=== PATIENT | male | born 1980 | race Caucasian/White ===

== ENCOUNTER → 2023-10-05 10:17 | Outpatient (BNVA) | payer MEDICAID, SELFPAY | PROVIDERS: Visit Provider Nurse Practitioner | DX: R05.9 Cough, unspecified (principal); J10.1 Influenza due to other identified influenza virus with other respiratory manifestations | CPT/HCPCS: 87400; 87426 ==

== ENCOUNTER 2023-11-20 18:04 | Emergency (ER) | payer MEDICAID, SELFPAY ==
[2023-11-20 18:09] VITALS: BP 152/85; PULSE 74; RESP 16; TEMP 36.4; O2SAT 98
[2023-11-20 18:13] VITALS: PULSE 72; O2SAT 96
[2023-11-20 18:27] LABS: Basophils # 0.1 10^3/uL (0.0-0.1); Eosinophils # 0.7 10^3/uL (0.0-0.8); Eosinophils % 6.4 %; Hematocrit 51.1 % (37-53); Lymphocytes # 3.3 10^3/uL (0.8-4.8); Lymphocytes % 30.8 %; Mean Corpuscular HGB Conc 34.6 g/dL (30-55); Mean Corpuscular Hemoglobin 30.1 pg (27-33); Mean Corpuscular Volume 86.8 fl (82-101); Mean Platelet Volume 9.4 fL (7.4-10.4); Monocytes # 0.6 10^3/uL (0.2-0.9); Monocytes % 5.7 %; Neutrophils # 5.94 10^3/uL (1.8-7.7); Neutrophils % 55.6 %; Nucleated Red Blood Cells % 0 %; Platelet Count 287 10^3/cmm (157-399); Red Blood Count 5.89 10^6/uL (3.85-5.65); Red Cell Distribution Width 13.1 % (12.1-15.1)
--- NOTE | 2023-11-20 18:41 | ED_ITS ---
HPI - Male Genitourinary 2 General: Chief complaint: Urogenital-Male Stated complaint: pain in groin moving up Time Seen by Provider: 11/20/23 18:41 History of Present Illness: 43-year-old male patient comes in today with inguinal and testicular pain for the last 2 days that have been severe. Patient reports about 2 months ago he had a similar episode and was seen in the emergency room in [facility]. At that time patient was cleared of any acute abnormality was recommended to follow-up with urology. Patient did not get any follow-up. Patient comes in tonight with similar pain that is worsened throughout the day while he has been lifting boxes at work. Patient appears nontoxic. Patient appears in no pain at rest. Review of Systems 2 General: Reports: 10 or more systems reviewed and unremarkable except in HPI and below : Reports: testicular pain Physical Exam 2 Const: COMMON NORMALS: alert HENMT: COMMON NORMALS: normocephalic HEAD & SCALP: normocephalic Neck/C-Spine: COMMON NORMALS: full ROM Resp: COMMON NORMALS: normal respiratory effort and clear to auscultation bilaterally AUSCULTATION: clear to auscultation bilaterally Cardio: COMMON NORMALS: regular rate and regular rhythm RATE: regular rate RHYTHM: regular rhythm GI: COMMON NORMALS: non-tender : COMMON NORMALS: Yes no CVA tenderness BLADDER/KIDNEY EXAM: Yes no CVA tenderness PENIS: normal penis and circumcised TESTES: Yes testicular lie normal and Yes testicular tenderness Back/Pelvis: COMMON NORMALS: no CVA tenderness Extremity: COMMON NORMALS: full ROM Neuro: SENSORIUM/ORIENTATION: Yes alert Skin: COMMON NORMALS: turgor normal GENERAL SKIN EXAM: turgor normal Course 2 Vital Signs: Vital signs: Vital Signs Temperature 97.6 F 11/20/23 18:09 Pulse Rate 81 11/20/23 19:13 Respiratory Rate 16 11/20/23 18:09 Blood Pressure 131/88 11/20/23 19:30 Pulse Oximetry 95 11/20/23 19:30 Oxygen Delivery Me thod Room Air 11/20/23 19:30 [facility] - Male Medical Decision Making Patient presents today with complaints of bilateral testicular pain. On exam patient appears nontoxic. Respirations are even lungs are clear to auscultation. Genital exam is normal. Differential diagnosis includes not limited to epididymitis, hydrocele, inguinal hernia, muscle strain. CBC and CMP were unremarkable. Scrotal ultrasound noted no acute abnormalities. Urinalysis was clean. 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 Patient does a lot of lifting. Most likely this is aggravated something in his groin and he has had persistent pain on and off. Recommended acetaminophen and ibuprofen for pain. Follow-up with urology for further evaluation. Patient and spouse both reported understanding. Lab Data 11/20/23 18:20 11/20/23 18:20 Radiology Impressions Scrotum Ultrasound 11/20/23 18:49 IMPRESSION: There are no acute concerning abnormalities. Laboratory Results WBC 10.70 10^3/uL (3.29-11.43) 11/20/23 18:20 RBC 5.89 10^6/uL (3.85-5.65) H 11/20/23 18:20 Hgb 17.70 g/dL (11.27-16.99) H 11/20/23 18:20 Hct 51.1 % (37-53) 11/20/23 18:20 MCV 86.8 fl (82-101) 11/20/23 18:20 MCH 30.1 pg (27-33) 11/20/23 18:20 MCHC 34.6 g/dL (30-55) 11/20/23 18:20 RDW 13.1 % (12.1-15.1) 11/20/23 18:20 Plt Count 287 10^3/cmm (157-399) 11/20/23 18:20 MPV 9.4 fL (7.4-10.4) 11/20/23 18:20 Neut % (Auto) 55.6 % 11/20/23 18:20 Lymph % (Auto) 30.8 % 11/20/23 18:20 [place] % (Auto) 5.7 % 11/20/23 18:20 Eos % (Auto) 6.4 % 11/20/23 18:20 Baso % (Auto) 1.0 % 11/20/23 18:20 Neut # (Auto) 5.94 10^3/uL (1.8-7.7) 11/20/23 18:20 Lymph # (Auto) 3.3 10^3/uL (0.8-4.8) 11/20/23 18:20 [place] # (Auto) 0.6 10^3/uL (0.2-0.9) 11/20/23 18:20 Eos # (Auto) 0.7 10^3/uL (0.0-0.8) 11/20/23 18:20 Baso # (Auto) 0.1 10^3/uL (0.0-0.1) 11/20/23 18:20 Nucleated RBC % (auto) 0 % 11/20/23 18:20 Nucleated RBCs # 0.0 /100WBC 11/20/23 18:20 Sodium 138 mmol/L (136-145) 11/20/23 18:20 Potassium 4.8 mmol/L (3.5-5.1) 11/20/23 18:20 Chloride 101 mmol/L (98-107) 11/20/23 18:20 Carbon Dioxide 27 mmol/L (22-29) 11/20/23 18:20 Anion Gap 14.8 (5-19) 11/20/23 18:20 BUN 15 mg/dL (6-20) 11/20/23 18:20 Creatinine 0.7 mg/dL (0.7-1.2) 11/20/23 18:20 GFR Calculation 122.5 mL/min (90-130) 11/20/23 18:20 Glucose 94 mg/dL (65-115) 11/20/23 18:20 Calculated Osmolality 287 mOsm/kg (285-295) 11/20/23 18:20 Calcium 9.6 mg/dL (8.5-10.5) 11/20/23 18:20 Total Bilirubin 0.5 mg/dL (0.15-1.2) 11/20/23 18:20 AST 12 U/L (0-40) 11/20/23 18:20 ALT 8 U/L (0-41) 11/20/23 18:20 Alkaline Phosphatase 63 U/L (40-130) 11/20/23 18:20 Total Protein 7.4 g/dL (6.6-8.7) 11/20/23 18:20 Albumin 4.3 g/dL (3.5-5.2) 11/20/23 18:20 Globulin 3.1 g/dL (1.3-4.6) 11/20/23 18:20 Lipase 14 U/L (13-60) 11/20/23 18:20 Urine Color Yellow (Yellow) 11/20/23 19:45 Urine Appearance Clear (CLEAR) 11/20/23 19:45 Urine pH 5 (5-7) 11/20/23 19:45 Ur Specific [place] 1.025 (1.005-1.030) 11/20/23 19:45 Urine Protein Neg (Negative) 11/20/23 19:45 Urine Glucose (UA) Norm (Normal) 11/20/23 19:45 Urine Ketones Negative (Negative) 11/20/23 19:45 Urine Blood Neg (Negative) 11/20/23 19:45 Urine Nitrate Negative (Negative) 11/20/23 19:45 Urine Bilirubin Neg (Negative) 11/20/23 19:45 Urine Urobilinogen Norm mg/dL (Negative) 11/20/23 19:45 Ur Leukocyte Esterase Negative (Negative) 11/20/23 19:45 All radiology interpretation(s) finalized by discharge Discharge Plan Discharge Patient Disposition: Home Clinical Impression: Pain in both testicles Condition: Stable Prescriptions: New naproxen 500 mg tablet 500 mg PO BID Qty: 20 0RF No Action oseltamivir [Tamiflu] 75 mg capsule 75 mg PO BID 5 Days Qty: 10 0RF promethazine-DM 6.25-15 mg/5 mL syrup 5 ml PO Q6H PRN (Reason: cough) Qty: 200 0RF Discharge Orders: Discharge ED (Routine); Ordered 11/20/23 Ordered By: Ilya Dominguez Referrals: Yari Gonzales NP [Primary Care Provider] - Discharge Diet: Usual diet Discharge Activity: Increase activity as tolerated Patient Instructions: Testicle Pain (ED) Activity Restrictions/Additional Instructions: Your exam today noted no significant abnormality to suggest need for surgery or immediate antibiotics. I have recommended through our case management system a referral to urology for further evaluation of your testicular pain. The ultrasound performed today ruled out a torsion of the testicle, infection of the epididymal sac and testicle, and hernia. We also did not find any signs of infection in your urine or abnormalities with your blood test to suggest infection. I recommend at this time to avoid heavy lifting, use NSAIDs such as naproxen or ibuprofen to help with pain, and to monitor for signs of infection such as fever. Return to the ER for worsening symptoms such as blood in vomit or stool, blood in urine, fever greater than 100.4, or new concerns. Follow-up with primary care as needed. Coding Level of Care Code ED [employer] for Eros Arredondo
[2023-11-20 18:43] VITALS: BP 119/72; PULSE 76; O2SAT 96
--- NOTE | 2023-11-20 18:49 | USR_ITS ---
PROCEDURE INFORMATION: Exam: US Scrotum Exam date and time: 11/20/2023 7:15 PM Age: 43 years old Clinical indication: Scrotum pain; Patient HX: No known trauma. No history of vasectomy or any other urological intervention. ; Additional info: Testicular pain TECHNIQUE: Imaging protocol: Real-time ultrasound of the scrotum and contents with color Doppler and image documentation. COMPARISON: No relevant prior studies available. FINDINGS: Right testicle: Measures 4.8 x 3.4 x 2.3 cm. No mass. No torsion. Normal vascular flow. Left testicle: Measures 3.4 x 2.8 x 2 cm. No mass. No torsion. Normal vascular flow. Epididymides: Normal. No epididymitis. Scrotum/soft tissues: No hydrocele or varicocele. US/US scrotum [id number] IMPRESSION: There are no acute concerning abnormalities.
[2023-11-20 19:02] LABS: Alanine Aminotransferase 8 U/L (0-41); Albumin Level 4.3 g/dL (3.5-5.2); Alkaline Phosphatase 63 U/L (40-130); Aspartate Amino Transferase 12 U/L (0-40); Blood Urea Nitrogen 15 mg/dL (6-20); Calcium 9.6 mg/dL (8.5-10.5); Carbon Dioxide 27 mmol/L (22-29); Chloride 101 mmol/L (98-107); Creatinine Clr Calc Pharmacy 144.6613; Globulin 3.1 g/dL (1.3-4.6); Glomerular Filtration Rate 122.5 mL/min (90-130); Glucose 94 mg/dL (65-115); Lipase 14 U/L (13-60); Osmolality Calculated 287 mOsm/kg (285-295); Sodium 138 mmol/L (136-145); Total Bilirubin 0.5 mg/dL (0.15-1.2); Total Protein 7.4 g/dL (6.6-8.7)
[2023-11-20 19:13] VITALS: BP 122/86; PULSE 81; O2SAT 94
[2023-11-20 19:27] LABS: Anion Gap 14.8 (5-19); Potassium 4.8 mmol/L (3.5-5.1)
[2023-11-20 19:30] VITALS: BP 131/88; O2SAT 95
[2023-11-20 19:51] LABS: Add Urine Microscopic? NO; Charge for UA Resulting for Rev
[2023-11-20 19:55] LABS: Bilirubin Urine Neg (Negative); Blood Urine Neg (Negative); Glucose Urine UA Norm (Normal); Ketones Urine Negative (Negative); Leukocyte Esterase Urine Negative (Negative); Nitrate Urine Negative (Negative); Protein Urine Neg (Negative); Specific Gravity, Urine 1.025 (1.005-1.030); Urine Appearance Clear (CLEAR); Urine Color Yellow (Yellow); Urobilinogen Urine Norm (Negative); pH Urine 5 (5-7)
[2023-11-20 20:14] VITALS: BP 124/74; O2SAT 96
--- NOTE | 2023-11-21 08:27 | DCPLANNER ---
I attempted to call patient on 11/21/23 at 0828 am to see where patient would like his urology referral sent to. I left a voicemail on this patients phone.
--- NOTE | 2023-11-26 10:57 | DCPLANNER ---
Referral sent to [facility] -Spoke to patient-
== END 2023-11-20 20:18 | disposition home or self-care (01) ==
PROVIDERS: Emergency Medicine; Emergency Provider Nurse Practitioner Family; PCP Nurse Practitioner Family
DX: N50.812 Left testicular pain (principal); N50.811 Right testicular pain
CPT/HCPCS: 36415; 76870; 80053; 81003; 83690; 85025; 99284